=== PATIENT | female | born 1970 | race Caucasian/White ===

== ENCOUNTER 2021-05-26 18:30 | Emergency (ER) | payer OTHER ==
[~2021-05-26] VITALS: Ht 165.1 cm; Wt 63.5 kg
[~2021-05-26 18:30] MED LIST: CLAR500 PO; HYDGUAL120 PO
== END 2021-05-26 23:25 | disposition home or self-care (01) ==
LOC: ER 18:30
DX: S52.602A Unspecified fracture of lower end of left ulna, initial encounter for closed fracture (principal); S52.502A Unspecified fracture of the lower end of left radius, initial encounter for closed fracture; F17.210 Nicotine dependence, cigarettes, uncomplicated; W01.198A Fall on same level from slipping, tripping and stumbling with subsequent striking against other object, initial encounter; Y93.01 Activity, walking, marching and hiking
CPT/HCPCS: 25605; 36415; 73110; 96374-59; 96375-59; 99152; 99283-25; A9270; J2405; J2704; J3010; J7030

== ENCOUNTER 2023-06-09 11:57 | Observation (INO) | payer OTHER ==
[~2023-06-09 11:57] MED LIST changes: -ASPIR 8181 M1 PO; -LISI20 PO; -METO25ER PO; -Nicoderm Cq1 EAC1 TOP; -VANQUISH PO
[2023-06-09 12:30] LABS: BASOPHILS ABSOLUTE AUTO 0.03 K/mm3 (0.00-0.23); BASOPHILS PERCENT AUTO 1 % (0-2); EOSINOPHILS ABSOLUTE AUTO 0.22 K/mm3 (0.00-0.68); EOSINOPHILS PERCENT AUTO 5 % (0-6); Hematocrit 43.5 % (33.0-51.0); Hemoglobin 15.4 g/dL (11.5-16.0); IMMATURE GRAN ABSOLUTE AUTO 0.01 K/mm3 (0.00-0.10); IMMATURE GRAN PERCENT AUTO 0 % (0-1); LYMPHOCYTES ABSOLUTE AUTO 1.33 K/mm3 (0.84-5.20); LYMPHOCYTES PERCENT AUTO 32 % (21-46); MONOCYTES ABSOLUTE AUTO 0.27 K/mm3 (0.16-1.47); MONOCYTES PERCENT AUTO 6 % (4-13); Mean Corpuscular HGB 32.1 pg (26.0-34.0); Mean Corpuscular HGB Conc 35.4 g/dL (31.5-36.5); Mean Corpuscular Volume 91 fL (80-100); Mean Platelet Volume 9.9 fL (9.1-12.4); NEUTROPHILS ABSOLUTE AUTO 2.34 K/mm3 (1.96-9.15); NEUTROPHILS PERCENT AUTO 56 % (41-73); Platelet Count 140 K/mm3 (150-400); RDW Coefficient Variation 12.8 % (11.7-14.2); RDW Standard Deviation 41.9 fL (35.1-46.3)
[2023-06-09 12:54] LABS: Albumin, Blood 3.9 g/dL (3.4-5.0); Albumin/Globulin Ratio 1.1 (0.8-1.8); Bilirubin, Total 0.3 mg/dL (0.1-1.0); Bun/Creatinine Ratio 12.7 (12.0-20.0); Creatinine, Blood 0.79 mg/dL (0.40-1.00); Globulin, Blood 3.7 g/dL (2.2-4.0); Potassium, Blood 3.7 mmol/L (3.5-5.5); Total Protein, Blood 7.6 g/dL (6.4-8.2)
[2023-06-09] MEDS ORDERED: LISI20 PO (16:24)
--- NOTE | 2023-06-09 16:35 | NUR ---
PT CHART REVIEWED FOR ADMISSION
[2023-06-09 16:50] VITALS: BP 180/95
--- NOTE | 2023-06-09 17:49 | NUR ---
ADMISSION WITH AMA PATIENT ADMITTED TO MEDICAL FLOOR FOR CARDIAC WORK UP. PATIENT REFUSING TO ALLOW STAFF TO PROVIDE CARE. PATIENT PACING IN ROOM, RED FACED, DEMANDING TO GO HOME. PATIENT WANTING TO GO OUT TO SMOKE AND REFUSES ANY NICOTINE PATCH OR GUM. PROVIDED EDUCATION RELATED TO OUTCOMES IF PATIENT LEFT AMA. ENCOURAGED PATIENT TO RETURN TO ED IF HAS FURTHER ISSUES. INFORMED DR. REBOLLEDO THAT PATIENT LEFT AMA. TEARFUL AND IN THE ROOM WITH PATIENT. PATIENT AMBULATED OUT WITH . IV DC'D PRIOR TO DISCHARGE.
== END 2023-06-09 17:31 | disposition left against medical advice (07) ==
LOC: ER 11:57 → MEDS 14:41
PROVIDERS: Physician Assistant; ADMIT Family Medicine
DX: I16.1 Hypertensive emergency (principal); I10 Essential (primary) hypertension; R07.89 Other chest pain; F17.210 Nicotine dependence, cigarettes, uncomplicated; F41.9 Anxiety disorder, unspecified; F12.20 Cannabis dependence, uncomplicated; Z53.29 Procedure and treatment not carried out because of patient's decision for other reasons
CPT/HCPCS: 71046; 80053; 83690; 85025; 93005; 93010; 96374; 99285-25; A9270; J0360; Q0177

== ENCOUNTER → 2023-06-09 | Outpatient (CLI) | payer OTHER ==
[~2023-06-09] MED LIST changes: +ASPIR 8181 M1 PO; +LISI20 PO; +METO25ER PO; +Nicoderm Cq1 EAC1 TOP; +VANQUISH PO
== END ==
LOC: LAB 11:41 → LAB SHORT 11:41
DX: R07.89 Other chest pain (principal)
CPT/HCPCS: 84484

== ENCOUNTER 2023-06-13 09:58 | Observation (INO) | payer OTHER ==
[~2023-06-13] VITALS: Ht 175.3 cm; Wt 78.1 kg
[~2023-06-13 09:58] MED LIST changes: +LISI20 PO
[2023-06-13 10:47] LABS: BASOPHILS ABSOLUTE AUTO 0.03 K/mm3 (0.00-0.23); BASOPHILS PERCENT AUTO 1 % (0-2); EOSINOPHILS ABSOLUTE AUTO 0.27 K/mm3 (0.00-0.68); EOSINOPHILS PERCENT AUTO 7 % (0-6); Hemoglobin 16.3 g/dL (11.5-16.0); IMMATURE GRAN PERCENT AUTO 0 % (0-1); LYMPHOCYTES ABSOLUTE AUTO 1.19 K/mm3 (0.84-5.20); LYMPHOCYTES PERCENT AUTO 31 % (21-46); MONOCYTES ABSOLUTE AUTO 0.31 K/mm3 (0.16-1.47); MONOCYTES PERCENT AUTO 8 % (4-13); Mean Corpuscular HGB 32.3 pg (26.0-34.0); Mean Corpuscular HGB Conc 36.2 g/dL (31.5-36.5); Mean Corpuscular Volume 89 fL (80-100); Mean Platelet Volume 10.3 fL (9.1-12.4); NEUTROPHILS PERCENT AUTO 53 % (41-73); Platelet Count 140 K/mm3 (150-400); RDW Coefficient Variation 12.7 % (11.7-14.2); RDW Standard Deviation 41.5 fL (35.1-46.3); Red Blood Cell Count 5.05 M/mm3 (3.80-5.20)
[2023-06-13] MEDS ORDERED: ASPIR 8181 M1 PO (10:56)
[2023-06-13 11:55] LABS: Albumin, Blood 4.2 g/dL (3.4-5.0); Albumin/Globulin Ratio 1.1 (0.8-1.8); Bilirubin, Total 0.4 mg/dL (0.1-1.0); Bun/Creatinine Ratio 13.3 (12.0-20.0); Calcium, Blood 9.5 mg/dL (8.5-10.1); Creatinine, Blood 0.9 mg/dL (0.40-1.00); Potassium, Blood 4.1 mmol/L (3.5-5.5); Total Protein, Blood 8.2 g/dL (6.4-8.2)
[2023-06-13 15:09] VITALS: BP 140/93
[2023-06-13] MEDS ORDERED: VANQUISH PO (15:15)
[2023-06-13] MEDS ORDERED: Nicoderm Cq1 EAC1 TOP (15:30)
--- NOTE | 2023-06-13 17:50 | NUR ---
SHIFT SUMMARY PATIENT ADMITTED THIS AFTERNOON TO MEDICAL FLOOR AROUND 1400. STATES SHE CONTINUES TO HAVE INTERMITTENT SHARP CHEST PAIN. DENIES SHORTNESS OF BREATH. PATIENT STATES NO CIGARETTES,LIGHTERS OR OTHER SOURCES OF IGNITION PRESENT IN ROOM.
[2023-06-13 19:24] VITALS: BP 143/89
[2023-06-14 04:11] VITALS: BP 147/90
--- NOTE | 2023-06-14 06:41 | NUR ---
Shift Summary No c/o of chest pain or anxiety this evening, in room with her. She did leave the room twice for less than 30 minutes with . Rcvd Tylenol for headache. Slept well t/o most of the night. AOx4, independent in room. Stress test today, NPO since 0000. Removed nicotine patch and nitro patch at 0300 in anticipation of stress test.
[2023-06-14 07:39] VITALS: BP 146/92
[2023-06-14 12:11] VITALS: BP 154/95
[2023-06-14 15:48] VITALS: BP 149/96
--- NOTE | 2023-06-14 16:31 | NUR ---
PATIENT HAS BEEN HAVING CHEST PAIN TODAY AND INCREASED ANXIETY. PATIENT UP WALKING HALLS AND KRISTAN OUTSIDE THIS MORNING. GAMEPLAY PROGRAMMER INFORMED PATIENT THAT POLICY IS TO NOT LEAVE HER ROOM MORE THAN 30 MINUTES AND TO NOT LEAVE UNIT OTHERWISE SHE WILL BE CONSIDERED SELF DISCHARGE LEAVING AMA. PATIENT TELE BOX NOT WORKING AT 1620 AND OLY DUEÑAS WAS INFORMED BY TELEMETRY. GAMEPLAY PROGRAMMER AND OLY WERE UNABLE TO LOCATE PATIENT, OVERHEAD PAGE FOR PATIENT TO RETURN TO HER ROOM AND SHE WAS THERE WITHIN 3 MINUTES.
[2023-06-14 19:15] VITALS: BP 158/78
--- NOTE | 2023-06-14 23:14 | NUR ---
NURSE NOTE ALERT AND ORIENTED X 4. SOMEWHAT DEFENSIVE WITH INTERACTIONS WITH NURSE. MED TELE SINUS RHYTHM AT 74. VOICED PAIN OF CHEST AREA LESS THAN EARLIER. UP AMBULATIONG ABOUT HALLWAYS WITHOUT NOTED DISTRESS. INSTRUCTED NOT TO LEAVE THE HOSPITAL. WILL BE NPO AT 0000 FOR STRESS TEST ORDERED TOMORROW. RECEIVED FIRE IGNITION TEACHING EARLIER. CALL LIGHT IN REACH
[2023-06-15 04:23] VITALS: BP 149/92
--- NOTE | 2023-06-15 05:39 | NUR ---
WING COVERER SUMMARY BP ELEVATED OTHERWISE VSS. NO C/O CHEST PAIN THIS SHIFT, BUT C/O HEADACHE AND RECEIVED TYLENOL - SEE MAR FOR DETAILS. NPO SINCE 2400 FOR POSSIBLE STRESS TEST IN THE AM. INTERMITTENT AMBULATION ABOUT THE HALLS, WAS CUED NOT TO LEAVE THE FLOOR. TELE - SINUS RHYTHM IN THE 70'S. HAS BEEN RESTING QUIETLY WITH FEW INTERRUPTIONS. CALL LIGHT IN REACH. WILL CONTINUE TO MONITOR
[2023-06-15 08:00] VITALS: BP 140/88
[2023-06-15] MEDS ORDERED: METO25ER PO (15:36)
--- NOTE | 2023-06-15 16:43 | NUR ---
SHIFT SUMMARY PT IS A&OX4, IND IN THE ROOM, AND HAS BEEN NPO FOR A STRESS TEST TODAY. SHE HAS NOT HAD ANY COMPLAINTS OF ANGINA, SOB, OR PAIN. ON TELE SHE HAS BEEN SR 60 S-70 S. SHE IS ON ROOM AIR AND SP02>93%. HER HAS BEEN AT THE BEDSIDE, AND HAS BEEN UPDATED ON CARE. THIS MORNING THE PT WAS VERY EMOTIONAL DUE TO ISSUES WITH SCHEDULING THE STRESS TEST, BUT SHE HAS PERKED UP SINCE THE STRESS TEST HAS STARTED. SHE WILL BE DISCHARGE THIS EVENING AFTER DR. LOWE REVIEWS THE TEST. SEE NOTES FOR D/C NOTE. THE PT HAS BEEN ASSESSED/EDUCATED ON FIRE IGNITION RISK, SAFETY, AND RISK OF INJURY. SHE IS AN EVERYDAY SMOKER AND A NICOTINE PATCH HAS BEEN PROVIDED.
--- NOTE | 2023-06-15 18:04 | NUR ---
D/C SUMMARY PT'S IV WAS TAKEN OUT BY THE OLY Torres (I VERIFIED), TELE BOX WAS SENT BACK TO TELEMETRY, MEDICATIONS FAXED TO [facility], BELONGINGS SENT HOME WITH THE PT. I WENT OVER THE D/C PACKET WITH THE PT AND ANSWERED ANY QUESTIONS THEY HAD. A RETURN TO WORK NOTE WAS GIVEN TO THE PT WITH A RETURN DATE OF 06/21/23. FOLLOW UP APT MADE FOR 06/20/23 WITH THE PT'S PCP DR. GUPTA. PT LEFT AT 1800
== END 2023-06-15 18:00 | disposition home or self-care (01) ==
LOC: ER 09:58 → MEDS 09:59
PROVIDERS: Student in an Organized Health Care Education/Training Program; ADMIT Internal Medicine
DX: R07.89 Other chest pain (principal); I10 Essential (primary) hypertension; F17.210 Nicotine dependence, cigarettes, uncomplicated; F12.20 Cannabis dependence, uncomplicated; F41.9 Anxiety disorder, unspecified; Z88.5 Allergy status to narcotic agent; Z79.82 Long term (current) use of aspirin; Z79.899 Other long term (current) drug therapy
CPT/HCPCS: 36415; 71260; 78452; 80053; 83690; 83735; 83880; 84484; 85025; 93005; 93010; 93017; 93306; 96372; 96374-59; 96376; 99285-25; A9270; A9500; G0378; J1650; J2060; J2785; Q9967

== ENCOUNTER → 2023-06-20 | Outpatient (CLI) | payer OTHER ==
[~2023-06-20] MED LIST changes: +ASPIR 8181 M1 PO; +METO25ER PO; +Nicoderm Cq1 EAC1 TOP; +VANQUISH PO
[2023-06-21 07:25] LABS: Stool Occult Bld Immuno 1 Negative (NEGATIVE)
== END | disposition home or self-care (01) ==
LOC: LAB 08:15 → LAB SHORT 08:15
PROVIDERS: Physician Assistant
DX: Z12.11 Encounter for screening for malignant neoplasm of colon (principal)
CPT/HCPCS: G0328

== ENCOUNTER → 2023-09-25 | Outpatient (CLI) | payer OTHER | LOC: LAB SHORT 14:30 → LAB 14:30 | PROVIDERS: Physician Assistant | DX: I10 Essential (primary) hypertension (principal) | CPT/HCPCS: 82384 ==

== ENCOUNTER → 2023-10-04 | Outpatient (CLI) | payer OTHER ==
[2023-10-14 07:58] LABS: HPV GENOTYPE 16 Not Detected; HPV GENOTYPE 18 Not Detected; HPV HIGH RISK Not Detected; HPV SOURCE Cervical
== END ==
LOC: LAB 10:47 → LAB SHORT 10:47
PROVIDERS: Advanced Practice Midwife
DX: Z01.419 Encounter for gynecological examination (general) (routine) without abnormal findings (principal)
CPT/HCPCS: 87624; G0123

== ENCOUNTER → 2025-02-05 | Outpatient (CLI) | payer OTHER ==
[2025-02-05 13:58] LABS: Stool Occult Bld Immuno 1 Negative (NEGATIVE)
== END ==
LOC: LAB 07:00 → LAB SHORT 07:00
PROVIDERS: Physician Assistant
DX: Z12.11 Encounter for screening for malignant neoplasm of colon (principal)
CPT/HCPCS: G0328